=== PATIENT | female | born 1995 | race Caucasian/White ===

== ENCOUNTER 2017-06-07 12:26 | Emergency (ER) | payer OTHER ==
[~2017-06-07] VITALS: Ht 167.6 cm; Wt 83.5 kg
[~2017-06-07 12:26] MED LIST: BACTRIM DS TAB1 EACH PO; CYCLOBENZAPRINE5 MG PO; DEPAKOTE500 MG PO; EXCEDRIN CAPLE1 EACH PO; HYDROCODON-ACE1 EAC7 PO; IBUPROFEN 600600 M1 PO; MELATONIN5 M2 PO; NORCO 5-325 TA1 EACH PO; SEROQUEL 25 MG25 M1 PO; VISTARIL 25 MG25 M1 PO
[2017-06-07 13:46] LABS: URINE BILIRUBIN NEGATIVE (Negative); URINE BLOOD 1+ (Negative); URINE COLOR YELLOW; URINE GLUCOSE-RANDOM* NEGATIVE (Negative); URINE KETONES TRACE (Negative); URINE PROTEIN (DIPSTICK) 2+ (Negative)
[2017-06-07 13:50] LABS: URINE LEUKOCYTES-REFLEX 1+ (Negative)
[2017-06-07 13:59] LABS: HEMATOCRIT 34.7 % (37.0-47.0); HEMOGLOBIN 12.3 gm/dL (12.0-15.0); MCH 31.8 pg (26.0-34.0); MCHC 35.4 g/dL (28.0-37.0); MCV 89.8 fL (80.0-100.0); PLATELET COUNT 201 thou/uL (150-400); RBC 3.87 mil/uL (4.20-5.00); RDW 12.6 % (10.5-14.5); WBC 22.9 thou/uL (4.0-11.0)
[2017-06-07 14:07] LABS: CREATININE 0.9 mg/dL (0.6-1.0); POTASSIUM 3.7 mmol/L (3.5-5.1)
[2017-06-07 14:09] LABS: MANUAL DIFF YES
[2017-06-07 14:11] LABS: ALBUMIN 2.6 g/dL (3.4-5.0); TOTAL BILIRUBIN 0.7 mg/dL (<0.1-1.0); TOTAL PROTEIN 6.9 g/dL (6.4-8.2)
[2017-06-07 14:20] LABS: CASTS None Seen /LPF (None Seen); CRYSTALS None Seen /LPF (None Seen); SQUAMOUS 4-10 Moderate /LPF (0-3)
[2017-06-07 14:21] LABS: URINE RBC 3-10 Few /HPF (0-2); URINE WBC-REFLEX >25 Many /HPF (0-5)
[2017-06-07 14:55] LABS: ABSOLUTE NEUTROPHILS 19.7 thou/uL (1.4-8.2); TOTAL CELL COUNT 100
[2017-06-07 14:56] LABS: ANISOCYTOSIS 1+; POLYCHROMASIA SLIGHT
[2017-06-07 18:33] VITALS: BP 112/56
== END 2017-06-07 18:53 | disposition short-term general hospital (02) ==
LOC: ER 12:26
PROVIDERS: Physician Assistant
DX: O23.03 Infections of kidney in pregnancy, third trimester (principal); D72.829 Elevated white blood cell count, unspecified; Z3A.29 29 weeks gestation of pregnancy; Z90.49 Acquired absence of other specified parts of digestive tract

== ENCOUNTER 2019-05-14 19:29 | Emergency (ER) | payer OTHER ==
[~2019-05-14] VITALS: Ht 167.6 cm; Wt 74.8 kg
[2019-05-14 20:23] LABS: URINE BILIRUBIN NEGATIVE (Negative); URINE BLOOD 3+ (Negative); URINE CLARITY SL CLOUDY; URINE COLOR YELLOW; URINE GLUCOSE-RANDOM* NEGATIVE (Negative); URINE KETONES TRACE (Negative); URINE LEUKOCYTES-REFLEX 1+ (Negative); URINE NITRITE-REFLEX POSITIVE (Negative); URINE PROTEIN (DIPSTICK) 2+ (Negative)
[2019-05-14 20:30] LABS: BACTERIA-REFLEX >30 Many /HPF (None Seen); CASTS None Seen /LPF (None Seen); CRYSTALS None Seen /LPF (None Seen); SQUAMOUS 0-3 Few /LPF (0-3); URINE RBC 3-10 Few /HPF (0-2); URINE WBC-REFLEX >25 Many /HPF (0-5)
[2019-05-14 20:39] LABS: ABSOLUTE NEUTROPHILS 7.8 thou/uL (1.4-8.2); BASOPHILS 0.2 % (0.0-2.0); HEMATOCRIT 36.5 % (37.0-47.0); HEMOGLOBIN 12.7 gm/dL (12.0-15.0); LYMPHOCYTES 11.6 % (24.0-44.0); MCH 29.3 pg (26.0-34.0); MCHC 34.7 g/dL (28.0-37.0); MCV 84.4 fL (80.0-100.0); MONOCYTES 8.7 % (1.0-8.0); PLATELET COUNT 199 thou/uL (150-400); POLYS 79.5 % (36.0-66.0); RBC 4.33 mil/uL (4.20-5.00); RDW 16.3 % (10.5-14.5); WBC 9.8 thou/uL (4.0-11.0)
[2019-05-14 20:49] LABS: CALCIUM 9.2 mg/dL (8.5-10.1); POTASSIUM 3.4 mmol/L (3.5-5.1)
[2019-05-14 20:55] LABS: ALBUMIN 3.7 g/dL (3.4-5.0); TOTAL BILIRUBIN 1.1 mg/dL (<0.1-1.0); TOTAL PROTEIN 7.7 g/dL (6.4-8.2)
[2019-05-14] MEDS ORDERED: ONDANSETRON HCL4 M2 PO (23:04)
[2019-05-14] MEDS ORDERED: KEFLEX500 M1 PO (23:04)
[2019-05-14] MEDS ORDERED: NORCO 5-325 TA1 EAC1 PO (23:04)
[2019-05-14 23:11] VITALS: BP 114/59
== END 2019-05-14 23:36 | disposition home or self-care (01) ==
LOC: ER 19:29
PROVIDERS: Physician Assistant
DX: N12 Tubulo-interstitial nephritis, not specified as acute or chronic (principal); R11.10 Vomiting, unspecified; Z90.49 Acquired absence of other specified parts of digestive tract

== ENCOUNTER 2021-10-06 10:52 | Emergency (ER) | payer OTHER ==
[~2021-10-06] VITALS: Ht 167.6 cm; Wt 95.3 kg
[~2021-10-06 10:52] MED LIST changes: +KEFLEX500 M1 PO; +NORCO 5-325 TA1 EAC1 PO; +ONDANSETRON HCL4 M2 PO
[2021-10-06 11:57] VITALS: BP 123/68
== END 2021-10-06 14:18 | disposition home or self-care (01) ==
LOC: ER 10:52
DX: U07.1 COVID-19 (principal); Z90.89 Acquired absence of other organs; Z79.891 Long term (current) use of opiate analgesic; Z79.899 Other long term (current) drug therapy